=== PATIENT | male | born 1965 ===

== ENCOUNTER 2017-05-01 10:50 | Emergency (ER) | payer OTHER ==
[~2017-05-01] VITALS: Ht 182.9 cm; Wt 78.9 kg
[2017-05-01 10:53] VITALS: BP 115/80
--- NOTE | 2017-05-01 11:26 | ED GI/GU/ABDOMINAL COMPLAINT ---
History of Present Illness General Chief Complaint: Abdominal Pain/Flank Pain Stated Complaint: ABD PAIN Source: patient Exam Limitations: no limitations Vital Signs & Intake/Output Vital Signs & Intake/Output Vital Signs Date Time Temp Pulse Resp B/P B/P Pulse O2 O2 Flow FiO2 Mean Ox Delivery Rate 05/01 1330 98.0 80 16 99 05/01 1156 98 Room Air 05/01 1053 98.0 99 20 115/80 97 Room Air Allergies Coded Allergies: No Known Allergies (05/01/17) Triage Note: PT TO ED C/O DIFFICULTY SWALLOWING/SORE THROAT SINCE YESTERDAY. ALSO C/O ABD PAIN, N/V/D, HEADACHES, DIZZINESS SINCE YESTERDAY. QUICK STREP SENT FROM TRIAGE. Triage Nurses Notes Reviewed? yes Onset: Abrupt Duration: day(s): (1), constant, continues in ED, getting worse Timing: single episode today Quality/Severity: fullness Severity Numbers: 6 Location: periumbilical Radiation: no radiation Activities at Onset: none Prior Abdominal Problems: none Past Sexual History: Unobtainable at this time No Modifying Factors: none Modifying Factors: Worsens With: eating, movement, other (SWALLOWING). Associated Symptoms: abdominal pain, diarrhea, nausea/vomiting HPI: 52-year-old male with [facility] complaints. He reports having pain in the back of his throat since yesterday. He reports pain is worse with swallowing but he is tolerating fluids. He states when he looked in the back of his throat this morning he saw "white stuff". He does not take any medicine for his symptoms. Additionally patient reports abdominal fullness saying "feels like a rock is in my stomach" the past day. He reports associated nausea and 1 episode of vomiting and 1 episode of watery diarrhea. Symptoms are worse with eating and he said it decreased appetite over the past day. Additionally he feels dizzy and has a headache. He has not taken any medicine for the pain. He rates the pain as 6 out of 10 located in the middle of his stomach and does not radiate. Onset was acute. He denies any similar symptoms in the past. He does not take any medicine for the pain. He denies any fevers, chills, sweats, back pain, hematemesis, melena, or any other associated symptoms. (CARI OJEDA PA-C) Reconcile Medications Fluconazole (Diflucan) 150 MG TABLET 1 TAB PO ONCE WEEKLY oral candidia Nystatin 100,000 UNIT/ML ORAL.SUSP 5 ML PO 4 TIMES/DAY oral thrush Omeprazole 20 MG TABLET.DR 1 TAB PO DAILY PRN abdominal pain (AYAKA CHOWDHURY,RENAE Farah) Past History Travel History Traveled to [place] past 21 day No Medical History Any Pertinent Medical History? see below for history Surgical History Surgical History: none Psychosocial History What is your primary language Kyrgyz Tobacco Use: Never used ETOH Use: denies use Illicit Drug Use: denies illicit drug use Family History Hx Contributory? No (RUSTY RAMIREZ,CARI) Review of Systems Review of Systems Constitutional: Reports: no symptoms. EENTM: Reports: see HPI, throat pain. Respiratory: Reports: no symptoms. Cardiovascular: Reports: no symptoms. GI: Reports: see HPI, abdominal pain, diarrhea, nausea. Genitourinary: Reports: no symptoms. Musculoskeletal: Reports: no symptoms. Skin: Reports: no symptoms. Neurological/Psychological: Reports: see HPI, headache, other (dizzy). Hematologic/Endocrine: Reports: no symptoms. Immunologic/Allergic: Reports: no symptoms. All Other Systems: Reviewed and Negative (RUSTY RAMIREZ,CARI) Physical Exam Physical Exam General Appearance: well developed/nourished, no apparent distress, alert, awake , comfortable Head: atraumatic, normal appearance Eyes: Bilateral: normal appearance, PERRL, EOMI, normal inspection. Ears, Nose, Throat, Mouth: hearing grossly normal, moist mucous membrane, Tympanic normal, there is some thick whitish yellow discharge in the posterior oropharynx. Tonsils are 1+ bilaterally with no exudate or erythema. Uvula rises midline. Neck: normal inspection, supple, full range of motion Respiratory: normal breath sounds, chest non-tender, no respiratory distress, lungs clear Cardiovascular: regular rate/rhythm, normal peripheral pulses Peripheral Pulses: 2+ radial (R), 2+ radial (L), 2+ dorsalis pedis (R), 2+ dorsalis pedis (L) Gastrointestinal: normal bowel sounds, soft, non-tender, no organomegaly Back: normal inspection, normal range of motion, no vertebral tenderness Extremities: normal range of motion Neurologic/Psych: no motor/sensory deficits, awake, alert, oriented x 3, normal gait, normal mood/affect Skin: intact, normal color, warm/dry Core Measures ACS in differential dx? No Severe Sepsis Present: No Septic Shock Present: No (RUSTY RAMIREZ,CARI) Progress Differential Diagnosis: AMI, cholecystitis, gastritis, hepatitis, pancreatitis, prostatitis, peptic ulcer, PUD/GERD, pyelonephritis, SBO, ureterolithiasis, urinary retention, urethritis, UTI/pyelo Plan of Care: Orders Procedure Date/time Status URINALYSIS 05/01 1134 Complete TROPONIN LEVEL 05/01 1134 Complete LIPASE 05/01 1134 Complete C-REACTIVE PROTEIN 05/01 1134 Complete COMPREHENSIVE METABOLIC PANEL 05/01 1134 Complete CBC WITHOUT DIFFERENTIAL 05/01 1134 Complete AMYLASE 05/01 1134 Complete EKG 05/01 1134 Active THROAT CULTURE W/QUICK STREP 05/01 1056 Active Laboratory Tests 05/01/17 1259: Urine Color YEL, Urine Clarity CLEAR, Urine pH 6.0, Ur Specific [place] >= 1.030 , Urine Protein TRACE H, Urine Ketones NEG, Urine Nitrite NEG, Urine Bilirubin NEG, Urine Urobilinogen 0.2, Ur Leukocyte Esterase NEG, Ur Microscopic SEDIMENT EXAMINED, Urine WBC 1-3 H, Ur Epithelial Cells RARE, Urine Mucus FEW, Urine Hemoglobin NEG, Urine Glucose NEG 05/01/17 1153: Anion Gap 11, Estimated GFR > 60, BUN/Creatinine Ratio 22.9, Glucose 97, Calcium 9.2, Total Bilirubin 1.3, AST 24, ALT 32, Alkaline Phosphatase 91, Troponin I < 0.01, C-Reactive Prot, Quant 2.8 H, Total Protein 7.4, Albumin 4.1, Globulin 3.3, Albumin/Globulin Ratio 1.2, Amylase 35, Lipase 65, CBC w Diff NO MAN DIFF REQ, RBC 4.68 L, MCV 86.8, MCH 28.5, RDW 13.9, MPV 8.4, Gran % 62.1, Lymphocytes % 19.2 L, Monocytes % 9.2, Eosinophils % 9.2 H, Basophils % 0.3, Absolute Granulocytes 3.7, Absolute Lymphocytes 1.1 L, Absolute Monocytes 0.5, Absolute Eosinophils 0.5, Absolute Basophils 0, PUBS MCHC 32.8 L 11:30 AM Patient seen and evaluated. He will have basic blood work EKG troponin and rapid strep. It appears as though he has oral thrush in the back of his throat. Rapid strep is negative. No signs of bacterial infection in his throat. His abdomen is currently soft and nontender. He is reporting a rocklike sensation in his abdomen. He will be given normal saline, Protonix, GI cocktail and be reassessed. 12:15 PM. Patient reports that the sensation in his abdomen has completely resolved after GI cocktail Protonix and IV fluids. EKG is normal sinus rhythm. As long as his blood work comes back within normal limits patient will be discharged home with omeprazole and will be treated for oral thrush. 1:20 PM: All labs are within normal limits. Patient is no longer reporting abdominal pain after GI cocktail and Protonix. Patient was discharged home with nystatin suspension for treatment oral thrush. Patient will also be treated with 2 doses of oral fluconazole in case of candidal esophagitis. As well as omeprazole to use for acid reflux. Review results of today's visit with patient. Patient is nontoxic-appearing and agrees with the plan. Advised to follow-up with his primary care doctor to review results of today's visit and for further evaluation and acid reflux. Just with patient about lifestyle and dietary modification to prevent acid reflux and gastritis. (CARI OJEDA PA-C) Initial ED EKG: normal sinus rhythm, no ST T wave changes (CARI OJEDA PA-C) Departure Departure Disposition: HOME OR SELF CARE Condition: Stable Clinical Impression Primary Impression: Oral thrush Secondary Impressions: Abdominal pain Qualifiers: Abdominal location: generalized Qualified Code: R10.84 - Generalized abdominal pain Referrals: EDINSON CHOWDHURY,NATALIE Craven (PCP/Family) Additional Instructions: Use nystatin suspension as directed. Tylenol 1000 mg every 6 hours as needed for pain. Omeprazole as needed for abdominal pain. Make a follow-up appointment with your primary care doctor this coming week to review results of today's visit. Into the emergency department with any concerns. Please go over all results of today's visit with your primary care doctor. Contact your primary care doctor to let them know you were here in the emergency room. There may be nonspecific findings which may not be related to your visit today here in the emergency room but may require further evaluation and chronic monitoring by your primary care doctor. If you had a laceration today the chance of foreign body always remains. You should follow-up with your primary care doctor for recheck in 3-5 days for a wound check. If you had an x-ray done there is a chance that a fracture could have been missed on initial read and you should follow-up with your primary care doctor for repeat x-rays if symptoms persist. If your blood pressure was elevated here in the emergency room please have rechecked by her primary care doctor within the next 48 hours by your primary care doctor. If you were prescribed a narcotic here in the emergency room or any type of controlled substances you're not allowed to drive while taking this medication or operate any type of heavy machinery. Narcotics can make you feel lightheaded dizziness nausea and can cause constipation. You may need to fruit picker a stool softener. Thank you for choosing [facility] emergency room. Please return to the emergency room immediately if you have any other concerns worsening of symptoms. Departure Forms: Customer Survey General Discharge Information Prescriptions: Current Visit Scripts Omeprazole 1 TAB PO DAILY PRN abdominal pain #30 TAB Nystatin 5 ML PO 4 TIMES/DAY #200 ML Fluconazole (Diflucan) 1 TAB PO ONCE WEEKLY #2 TAB (CARI OJEDA PA-C) PA/MENSWE[employer] SALESPERSON Co-Sign Statement Statement: ED Attending supervision documentation- [] I saw and evaluated the patient. I have also reviewed all the pertinent lab results and diagnostic results. I agree with the findings and the plan of care as documented in the PA's/MENSWEAR SALESPERSON's documentation. [X] I have reviewed the ED Record and agree with the PA's/MENSWEAR SALESPERSON's documentation. [] Additions or exceptions (if any) to the PAs/MENSWEAR SALESPERSON's note and plan are summarized below: [] (AYAKA CHOWDHURY,RENAE Farah)
[2017-05-01 12:04] LABS: ABSOLUTE BASOPHIL COUNT 0 /CUMM (0.0-0.2); ABSOLUTE EOSINOPHIL COUNT 0.5 /CUMM (0.0-0.7); ABSOLUTE GRANULOCYTE CT 3.7 /CUMM (1.4-6.5); ABSOLUTE LYMPH COUNT 1.1 /CUMM (1.2-3.4); ABSOLUTE MONOCYTE COUNT 0.5 /CUMM (0.10-0.60); BASOPHIL % 0.3 % (0.0-2.0); EOSINOPHIL % 9.2 % (0-5); GRANULOCYTE % 62.1 % (42.2-75.2); HEMATOCRIT 40.6 % (42-52); MEAN CORPUSCULAR HGB 28.5 PG (27.0-31.0); MEAN CORPUSCULAR HGB CONC 32.8 G/DL (33.0-37.0); MEAN CORPUSCULAR VOLUME 86.8 FL (80.0-94.0); MEAN PLATELET VOLUME 8.4 FL (7.4-10.4); PLATELET COUNT 244 /CUMM (130-400); RBC DISTRIBUTION WIDTH 13.9 % (11.5-14.5); RED BLOOD CELL CT 4.68 /CUMM (4.70-6.10); WHITE BLOOD CELL COUNT 5.9 /CUMM (4.8-10.8)
[2017-05-01] MEDS ORDERED: OMEPRAZOLE20 M3 PO (13:06)
[2017-05-01] MEDS ORDERED: NYSTATIN100000 UNI PO (13:06)
[2017-05-01] MEDS ORDERED: DIFLUCAN150 M1 PO (13:41)
[2017-05-01] MEDS ORDERED: ZOFRAN ODT4 M1 SL (22:36)
== END 2017-05-01 13:31 ==
LOC: ERH 10:50
PROVIDERS: Physician Assistant Medical
DX: B37.0 Candidal stomatitis (principal); R10.33 Periumbilical pain
CPT/HCPCS: 81001; 81003; 93005; 93010; 96374